=== PATIENT | female | born 1965 | race Caucasian/White ===

== ENCOUNTER → 2016-06-11 | Outpatient (CLI) | payer OTHER ==
[~2016-06-11] MED LIST: ALEVE220 M1 PO; BACLOFEN10 MG PO; CIPRO PO; KEFLEX PO; KEFLEX500 M1 PO; PERCOCET5/325 PO; PHENERGAN25 M1 PO; VICODIN 5/1 TAB 5/50 PO; ZYRTEC PO; ZYRTEC10 M1 PO
--- NOTE | ~2016-06-11 | US17 ---
[facility] A Service of [facility] & [facility] RADIOLOGY TEXT RESULTS PATIENT: CLIFTON VILLARREAL LOCATION: [facility] : 63 UNIT #: [id number] AGE: [address]: JEFFERSON ANDINO MD SEX: F ORDER DR: [id number] [facility] [address]. [place], [place] [address] [id number] O MR#: [id number] Acc #: [id number] NAME: CLIFTON VILLARREAL : 1965 SEX: F STUDY DATE/TIME: 06/11/2016 9:23 UNIT: [facility] ROOM: STUDY DESCRIPTION: US Breast Bilateral Attending Physician: Mauricio Andino M.D. Referring Physician: Mauricio Andino M.D. Ordering Physician: Mauricio Andino M.D. Primary Care Physician: Mauricio Andino M.D. MEDICAL IMAGING REPORT This report is preliminary unless electronic signature is present EXAM Targeted bilateral breast ultrasound 06/11/2016 FINDINGS Please see Additional views left breast 06/11/2016 for results. BIRADS: 3 Probably benign finding; short interval followup suggested Dictated by... Glenn Mejia M.D. THIS IS AN ELECTRONICALLY VERIFIED REPORT Glenn Mejia M.D. at 06/11/2016 5:18 PM JUSTYNA/jolene TD: 06/11/2016 12:55 JOB #: [id number] MEDICAL IMAGING REPORT COPY
--- NOTE | ~2016-06-11 | MY7 ---
[facility] A Service of [facility] & [facility] RADIOLOGY TEXT RESULTS PATIENT: CLIFTON VILLARREAL LOCATION: [facility] : 63 UNIT #: [id number] AGE: [address]: JEFFERSON ANDINO MD SEX: F ORDER DR: [id number] [facility] [address] [place], [place] [address] [id number] O MR#: [id number] Acc #: [id number] NAME: CLIFTON VILLARREAL : 1965 SEX: F STUDY DATE/TIME: 06/11/2016 9:00 UNIT: [facility] ROOM: STUDY DESCRIPTION: MY Mammogram Dx Dig Lt Attending Physician: Mauricio Andino M.D. Referring Physician: Mauricio Andino M.D. Ordering Physician: Mauricio Andino M.D. Primary Care Physician: Mauricio Andino M.D. MEDICAL IMAGING REPORT This report is preliminary unless electronic signature is present EXAM Additional mammographic views of the left breast and targeted ultrasound left breast. Targeted ultrasound right breast. INDICATION Abnormal screening study performed 01/18/2017 demonstrating bilateral nodularity in the breast. FINDINGS MLO and true lateral views of the left breast were obtained and reviewed with an FDA-approved CAD device. Thereafter, targeted ultrasound of the left breast was also performed. Targeted ultrasound of the right breast was performed. COMPARISONS 05/21/2016, 07/27/2011, 02/21/2008. FINDINGS MAMMOGRAPHIC FINDINGS: With the benefit of spot compression views on the left the 7 mm nodular asymmetry on the left is not completely resolved. There are benign calcifications in the left breast. Targeted ultrasound of the left breast was, thereafter, performed. TARGETED LEFT BREAST ULTRASOUND: The patient was initially scanned by the technologist then rescanned in my presence. There are 2 small cysts in the left breast. The first in the subareolar left breast measures about 8 x 6 mm and a second in the periareolar 12 o'clock position left breast measures about 5 x 7 mm. These have benign features on ultrasound, however, it is not clear that either corresponds to the nodular density on the patient's mammogram. No suspicious findings seen centrally in the left breast near targeted area of concern with ultrasound. Suggest a followup diagnostic mammogram on the left in 6 months to confirm expected stability of the probably benign finding mammographically. [facility] A Service of [facility] RADIOLOGY TEXT RESULTS PATIENT: CLIFTON VILLARREAL LOCATION: [facility] : 63 UNIT #: [id number] AGE: [address]: JEFFERSON ANDINO MD SEX: F ORDER DR: TARGETED RIGHT BREAST ULTRASOUND: The patient is initially scanned independently by the technologist and then rescanned in my presence. Imaging of the right breast was concentrated in the 9 o'clock position in the region of the mammographic abnormality. In the 9 o'clock position right breast 2 cm from the nipple, there is a probably benign complicated cyst measuring up to approximately 1.3 x 1.0 cm. There is a small rounded area of mural nodularity or debris within the cyst without evidence of internal color flow. No suspicious shadowing identified. There is an adjacent daughter cyst or bilobed component to the cyst on ultrasound and this corresponds to the finding mammographically (patient breast size is small and although this was marked as 2 cm from the nipple on ultrasound and is approximately 6 cm from the nipple mammographically, imaging findings are felt to be concordant between modalities.) Imaging of the 9 o'clock position right breast is otherwise negative. Absent new or worsening symptoms in either breast, the patient should return for a unilateral left diagnostic mammogram in 6 months to document expected stability of a probably benign 7 mm nodule only seen mammographically on the left. The benign cysts in the left breast identified on ultrasound require no additional follow up. On the right, the patient should undergo a followup ultrasound of the 9 o'clock position to document expected stability but probably benign complicated cyst measuring up to 13 mm at 9 o'clock. These findings and recommendations were discussed with the patient. She was also counseled that if imaging findings appear more suspicious on 6-month followup then biopsy of either of the findings would be necessary for further assessment. She voiced understanding and agreement. IMPRESSION 1. 7 mm nodular asymmetry in the central left breast has no ultrasound correlate. Unilateral left diagnostic mammogram in 6 months is recommended to document expected stability of this finding only seen mammographically. This is a probably benign finding. 2. 6-month follow up ultrasound of the right breast with attention to the 9 o'clock position is recommended to document expected stability of the probably benign complicated cyst at 9 o'clock. 3. Additional tiny benign cysts in the left breast only identified with ultrasound. These are benign and require no additional follow up. 4. Please see discussion above. Findings and recommendations were discussed with the patient. Patient's over the age of 40 are entered into a reminder system with target due date for the next mammogram. BIRADS: 3 Probably benign finding; short interval followup suggested. [facility] A Service of [facility] RADIOLOGY TEXT RESULTS PATIENT: CLIFTON VILLARREAL LOCATION: [facility] #: [id number] : [birth year] UNIT #: [id number] AGE: [address]: JEFFERSON ANDINO MD SEX: F ORDER DR: Dictated by... Glenn Mejia M.D. THIS IS AN ELECTRONICALLY VERIFIED REPORT Glenn Mejia M.D. at 06/11/2016 5:25 PM [place] TD: 06/11/2016 13:03 JOB #: [id number] MEDICAL IMAGING REPORT COPY
== END | disposition home or self-care (01) ==
LOC: CMAM 08:37
DX: R92.8 Other abnormal and inconclusive findings on diagnostic imaging of breast (principal); N63 Unspecified lump in breast; N64.89 Other specified disorders of breast; N83.202 Unspecified ovarian cyst, left side
CPT/HCPCS: 76641; G0206

== ENCOUNTER → 2016-07-09 | Day surgery (SDC) | payer OTHER ==
--- NOTE | ~2016-07-09 | OR ---
Unit #: [id number] #: [id number] Patient: CLIFTON VILLARREAL [id number] [address] [place], [place] [address] [id number] O MR#: [id number] NAME: CLIFTON VILLARREAL ROOM: Date of Procedure: 07/09/2016 Admission Date: 07/09/2016 Surgeon: Donovan Rodriguez M.D. : 1965 Attending Physician: Donovan Rodriguez M.D. Primary Care Physician: Kushal Raines M.D. OPERATIVE REPORT PROCEDURE PERFORMED Colonoscopy with snare polypectomy. INDICATIONS FOR PROCEDURE Average risk for colorectal cancer. MEDICATIONS Monitored anesthesia. POSTOPERATIVE FINDINGS Polyp in transverse colon, 1 cm snared and sent for histopathology. PLAN Repeat colonoscopy in 5 years. DESCRIPTION OF PROCEDURE The patient was explained of the procedure, risks, and benefits along with risks and benefits of anesthesia. She was brought to the endoscopy room. Propofol anesthesia was given. Rectal exam was done, which was normal. Colonoscope was lubricated, passed up the rectum, advanced under direct vision all the way to the cecum. Cecum was identified by ileocecal valve and appendiceal orifice. I then started to pull the scope out. Polyps seen in transverse colon, was snared in piecemeal, and sent for histopathology. I retroflexed in the rectum, small hemorrhoids seen. Scope was gently pulled out. She tolerated it well. Dictated by... Miles Lassiter/dieudonne TD: 07/10/2016 03:47 JOB #: [id number] CC: Mauricio Montiel M.D. Unit #: [id number] #: [id number] Patient: CLIFTON VILLARREAL OPERATIVE REPORT Page 1 of 1 X Donovan Rodriguez MD X PROCEDURE OPERATIVE NOTE
== END | disposition home or self-care (01) ==
LOC: COPS 08:40
DX: Z12.11 Encounter for screening for malignant neoplasm of colon (principal); K63.5 Polyp of colon; K64.9 Unspecified hemorrhoids; J44.9 Chronic obstructive pulmonary disease, unspecified; J45.909 Unspecified asthma, uncomplicated; M19.90 Unspecified osteoarthritis, unspecified site; F17.210 Nicotine dependence, cigarettes, uncomplicated; Z88.6 Allergy status to analgesic agent; Z88.8 Allergy status to other drugs, medicaments and biological substances; Z79.2 Long term (current) use of antibiotics; Z79.899 Other long term (current) drug therapy; Z98.51 Tubal ligation status; Z98.890 Other specified postprocedural states
CPT/HCPCS: 88305